=== PATIENT | female | born 1995 | race Caucasian/White ===

== ENCOUNTER 2018-10-22 20:10 | Emergency (ER) | payer SELFPAY ==
[~2018-10-22] VITALS: Ht 162.6 cm; Wt 73.9 kg
[2018-10-22] MEDS ORDERED: ONDANSETRON HCL 4MG/2ML INJ IV ONE (22:30)
[2018-10-22] MEDS ORDERED: KETOROLAC 15MG/ML VIAL IV ONE (22:30)
[2018-10-22] MEDS ORDERED: SODIUM CHLORIDE 0.9% 1,000 ML IV ONE (22:30)
[2018-10-22 22:46] LABS: CLARITY URINE CLOUDY (CLEAR); COLOR URINE DARK YELLOW (YELLOW); KETONES URINE 4+ (NEGATIVE); LEUKOCYTE ESTERASE URINE 1+ (NEGATIVE); NITRITE URINE POSITIVE (NEGATIVE); OCCULT BLOOD URINE 1+ (NEGATIVE); PROTEIN URINE 2+ (NEGATIVE); SPECIFIC GRAVITY URINE 1.037 (1.005-1.030)
[2018-10-22] MEDS ORDERED: LEVOFLOXACIN 750MG PREMIX 150 ML IV ONE (23:15)
[2018-10-23 00:01] LABS: BASOPHILS % 0.1 % (0.0-2.0); HEMATOCRIT. 32.6 % (36.0-48.0); HEMOGLOBIN. 10.7 g/dL (12.0-16.0); LYMPHOCYTES % 8.6 % (20.0-50.0); MEAN CORPUSCULAR HEMOGLOBIN 29.6 pg (28.0-32.0); MEAN CORPUSCULAR VOLUME 89.8 fL (81.0-99.0); MEAN PLATELET VOLUME 8.2 fl (7.4-10.4); NEUTROPHILS % 89.3 % (40.0-76.0); PLATELET 274 x1000/uL (130-400); RED BLOOD CELL COUNT 3.63 mill/uL (4.2-5.4); RED CELL DISTRIBUTION WIDTH 13.5 % (11.6-14.6)
[2018-10-23 00:07] LABS: CHLORIDE 105 mEq/L (98-107)
[2018-10-23] MEDS ORDERED: POTASSIUM CHLORIDE 20MEQ TABLET SR PO SCH (00:15)
[2018-10-23] MEDS ORDERED: METOCLOPRAMIDE HCL 10MG/2ML VIAL IV ONE (00:45)
[2018-10-23] MEDS ORDERED: MECLIZINE 25MG TABLET PO ONE (01:15)
[2018-10-23 02:03] VITALS: BP 110/71
== END 2018-10-23 02:06 | disposition home or self-care (01) ==
LOC: ER 20:10
DX: J18.9 Pneumonia, unspecified organism (principal); N39.0 Urinary tract infection, site not specified; R00.0 Tachycardia, unspecified; R42 Dizziness and giddiness
CPT/HCPCS: 36415; 71045; 80053; 81003; 81025; 83605; 85025; 87040; 87086; 93005; 96361; 96365; 96366; 96375; 99284; J1885; J1956; J2405; J2765; J7030; J8597

== ENCOUNTER 2018-10-24 10:39 | Emergency (ER) | payer MEDICAID, MEDICARE ==
[~2018-10-24] VITALS: Ht 170.2 cm; Wt 73.0 kg
[2018-10-24] MEDS ORDERED: IBUPROFEN 600MG TABLET PO ONE ×2 (11:15→19:15)
[2018-10-24] MEDS ORDERED: SODIUM CHLORIDE 0.9% 1,000 ML IV ONE ×4 (13:00→15:30)
[2018-10-24 13:51] LABS: CLARITY URINE CLOUDY (CLEAR); COLOR URINE DARK YELLOW (YELLOW); KETONES URINE 4+ (NEGATIVE); LEUKOCYTE ESTERASE URINE TRACE (NEGATIVE); NITRITE URINE NEGATIVE (NEGATIVE); OCCULT BLOOD URINE 2+ (NEGATIVE); PH URINE 6.5 (4.5-8.0); PROTEIN URINE 2+ (NEGATIVE); SPECIFIC GRAVITY URINE 1.026 (1.005-1.030)
[2018-10-24 14:01] LABS: HEMATOCRIT. 34.6 % (36.0-48.0); HEMOGLOBIN. 11.5 g/dL (12.0-16.0); MEAN CORPUSCULAR HEMOGLOBIN 29.6 pg (28.0-32.0); MEAN CORPUSCULAR VOLUME 89.1 fL (81.0-99.0); PLATELET 345 x1000/uL (130-400); RED BLOOD CELL COUNT 3.89 mill/uL (4.2-5.4); RED CELL DISTRIBUTION WIDTH 13.5 % (11.6-14.6)
[2018-10-24 14:04] LABS: CHLORIDE 101 mEq/L (98-107)
[2018-10-24 14:16] LABS: CREATINE KINASE 26 IU/L (26-192)
[2018-10-24 14:17] LABS: PLATELET ESTIMATE NORMAL
[2018-10-24 14:26] LABS: *AMPHETAMINES SCREEN URINE NEGATIVE (NEGATIVE); *BARBITURATES SCREEN URINE NEGATIVE (NEGATIVE); *BENZODIAZEPINES SCREEN URINE NEGATIVE (NEGATIVE); *COCAINE SCREEN URINE NEGATIVE (NEGATIVE)
[2018-10-24 14:28] LABS: METHADONE URINE SCREEN NEGATIVE (NEGATIVE); PHENCYCLIDINE URINE SCREEN NEGATIVE (NEGATIVE)
[2018-10-24] MEDS ORDERED: MECLIZINE 25MG TABLET PO ONE (14:30)
[2018-10-24 14:38] LABS: CANNABINOID URINE SCREEN PRESUMTIVE POSITIVE (NEGATIVE); OPIATES URINE SCREEN PRESUMTIVE POSITIVE (NEGATIVE)
[2018-10-24] MEDS ORDERED: CEFTRIAXONE 1 G PREMIX 50 ML IV ONE (15:30)
[2018-10-24] MEDS ORDERED: AZITHROMYCIN 500 MG in DEXT 5% WATER 250 ML IV ONE (15:30)
[2018-10-24] MEDS ORDERED: IOHEXOL-350 100 ML BOTTLE ONE (15:44)
[2018-10-24 23:28] VITALS: BP 113/58
== END 2018-10-24 23:45 | disposition short-term general hospital (02) ==
LOC: ER 10:39 → CANRESERV 17:18 → ENRESERV 17:18 → CANBEDREQ 17:23 → ER 23:45
DX: J18.8 Other pneumonia, unspecified organism (principal); R00.0 Tachycardia, unspecified; M25.511 Pain in right shoulder
CPT/HCPCS: 36415; 71275; 73030; 80053; 80305; 81003; 81025; 82550; 83605; 84443; 85025; 85379; 87040; 93005; 96365; 96367; 99291; J0456; J0696; J7030; J7060; J8597; Q9967